=== PATIENT | female | born 1990 | race Caucasian/White ===

== ENCOUNTER 2018-07-12 23:33 | Emergency (ER) | payer BC ==
[~2018-07-12] VITALS: Ht 157.5 cm; Wt 65.9 kg
[2018-07-12 23:35] VITALS: BP 131/78
--- NOTE | 2018-07-12 23:40 | NUR ---
Pt came to emergency dept. complaining of r shoulder dislocation. Pt states she has a hx of shoulder dislocation. Pt is AXO4. Respirations even and unlabored. Pt put on the monitor and pulse ox. Pending eval from ER .
--- NOTE | 2018-07-12 23:42 | NUR ---
CARLITA YEN at bedside.
[2018-07-12] MEDS ORDERED: HYDROCODONE/APAP 10/325MG 1 EA TABLET ONE (23:48)
[2018-07-12] MEDS ORDERED: IBUPROFEN 600 MG TABLET PO ONE (23:48)
[2018-07-13] MEDS ORDERED: HYDROCODONE/APAP 10/325MG 1 EA TABLET PO ONE
[2018-07-13] MEDS ORDERED: IBUPROFEN 600 MG TABLET PO ONE
--- NOTE | 2018-07-13 00:18 | NUR ---
XRAY AT BEDSIDE.
--- NOTE | 2018-07-13 01:36 | NUR ---
[facility]IVER CALLED FOR AN XRAY READ.
== END 2018-07-13 02:35 | disposition home or self-care (01) ==
LOC: ER 23:35
DX: S43.084A Other dislocation of right shoulder joint, initial encounter (principal); Z88.1 Allergy status to other antibiotic agents; Z60.2 Problems related to living alone; X50.9XXA Other and unspecified overexertion or strenuous movements or postures, initial encounter; Y93.89 Activity, other specified; Y92.89 Other specified places as the place of occurrence of the external cause; Y99.8 Other external cause status
CPT/HCPCS: 23650; 73030 ×2; 99284; A4606; A6407

== ENCOUNTER 2018-12-25 01:22 | Emergency (ER) | payer BC ==
[~2018-12-25] VITALS: Ht 157.5 cm; Wt 63.5 kg
[2018-12-25 01:49] VITALS: BP 108/69
--- NOTE | 2018-12-25 02:12 | NUR ---
BIBSELF FROM HOME. TO ER BED 4. AAOX, NAD NOTED, BREATHING EVEN AND UNLABORED. AMBULATORY. C/O 5TH DIGIT R HAND FINGER TIP LACERATION. WITH CONTINUOS BLEEDING. NO PAIN REPORT. PT REPORTS SHE CUT IT WHILE CUTTING SOMETHING. ATBEDSIDE
== END 2018-12-25 02:27 | disposition home or self-care (01) ==
LOC: ER 01:24
DX: S61.316A Laceration without foreign body of right little finger with damage to nail, initial encounter (principal); Z60.2 Problems related to living alone; Z88.1 Allergy status to other antibiotic agents; W26.8XXA Contact with other sharp object(s), not elsewhere classified, initial encounter; Y93.89 Activity, other specified; Y92.89 Other specified places as the place of occurrence of the external cause; Y99.8 Other external cause status

== ENCOUNTER 2019-08-31 06:46 | Emergency (ER) | payer BC, OTHER ==
[~2019-08-31] VITALS: Ht 157.5 cm; Wt 65.8 kg
[2019-08-31 06:52] VITALS: BP 112/66
--- NOTE | 2019-08-31 07:00 | NUR ---
BIBS. TO ER BED 2. AAOX4. NOT IN RESP DISTRESS, AMBULATORY. CAME IN FOR LACERATION ON R HAND THUMB WHILE OPENING A CAN OF DOG FOOD. LACERATION IS 3CM X 0.5CM. UNAPPROXIMATED. MODERATE BLEEDING. PTS TETANUS IS UP TO DATE. WOUND CLEANSE WITH NS. AWAITING MD FOR EVAL.
--- NOTE | 2019-08-31 07:04 | NUR ---
AT BEDSIDE FOR EVAL.
[2019-08-31] MEDS ORDERED: TDAP [DIPH/PERTUSSIS/TET] 0.5 ML VIAL IM ONE (07:07)
--- NOTE | 2019-08-31 07:15 | NUR ---
WOUND CARE DONE.
--- NOTE | 2019-08-31 07:15 | NUR ---
TDAP GIVEN PER MD ORDERED ON L DELTOID. LOT #[id number] EXP: 12/26/2020
--- NOTE | 2019-08-31 07:16 | NUR ---
Patient discharged to home in stable condition. Written and verbal after care instructions given. Patient verbalizes understanding of instruction. Pt ambulatory with a steady gait
== END 2019-08-31 07:17 | disposition home or self-care (01) ==
LOC: ER 06:54
DX: S61.011A Laceration without foreign body of right thumb without damage to nail, initial encounter (principal); Z60.2 Problems related to living alone; Z88.1 Allergy status to other antibiotic agents; W26.8XXA Contact with other sharp object(s), not elsewhere classified, initial encounter; Y93.89 Activity, other specified; Y92.89 Other specified places as the place of occurrence of the external cause; Y99.8 Other external cause status
CPT/HCPCS: 90715

== ENCOUNTER 2019-09-02 20:29 | Emergency (ER) | payer OTHER ==
[~2019-09-02] VITALS: Ht 157.5 cm; Wt 65.8 kg
[2019-09-02 20:35] VITALS: BP 105/64
--- NOTE | 2019-09-02 20:39 | NUR ---
AT THE BED SIDE
== END 2019-09-02 21:04 | disposition home or self-care (01) ==
LOC: ER 20:30
DX: S61.011D Laceration without foreign body of right thumb without damage to nail, subsequent encounter (principal); Z88.1 Allergy status to other antibiotic agents; Z60.2 Problems related to living alone; W18.39XD Other fall on same level, subsequent encounter